=== PATIENT | female | born 1960 | race Caucasian/White ===

== ENCOUNTER 2021-06-05 15:11 | Emergency (ER) | payer BC ==
[2021-06-05] MEDS ORDERED: Sodium Chloride 0.9% 1000 ML 1,000 ML IV STA (15:48)
--- NOTE | 2021-06-05 15:51 | ERPHSYRPT ---
- History of Present Illness Time Seen by Provider: 06/05/21 15:22 Historian: patient Exam Limitations: no limitations Patient Subjective Stated Complaint: pt here for abd pain and constipation since tuesday, has a normal bm on tuesday, she has had miralax,enema, with little relief Triage Nursing Assessment: pt alert, walked in, resp easy, skin w/d/p. abd distended, Physician History: 60 years old female with history of IBS presented in the ER with chief complaint of generalized abdominal pain with distention and constipation for the last 5 days. Patient report she usually have diarrhea dominant IBS but she does not have a normal bowel movement last 5 days despite taking [id number] stool softeners/laxatives. Belly was fairly distended until yesterday and took some Gas-X and had a small bowel movement with some improvement. Currently pain is mild to moderate generalized without any significant aggravating or relieving factors. Reports mild nausea but no vomiting. Patient was at Dr. Lovell's office, was recommended direct admission but patient preferred to come to ER to make sure that she does not have colitis/diverticulitis or obstruction to avoid admission if she can. Timing/Duration: day(s) (5), constant, gradual onset, worse Activities at Onset: rest Quality: cramping Abdominal Pain Onset Location: generalized abdomen Pain Radiation: no radiation Severity of Pain-Max: moderate Severity of Pain-Current: mild Modifying Factors: Improves With: nothing Associated Symptoms: denies symptoms Previous symptoms: no prior history Allergies/Adverse Reactions: codeine Allergy (Unknown, Verified 06/05/21 15:19) Penicillins Allergy (Unknown, Verified 06/05/21 15:19) Sulfa (Sulfonamide Antibiotics) Allergy (Verified 06/05/21 15:29) Hx Influenza Vaccination/Date Given: Yes Hx Pneumococcal Vaccination/Date Given: No Immunizations Up to Date: No Travel Risk - International Travel Have you traveled outside of the country in past 3 weeks: No - Coronavirus Screening Are you exhibiting any of the following symptoms?: No Close contact with a COVID-19 positive Pt in past 14-21 Days: No - Vaccine Status Have you recieved a Covid-19 vaccination: Yes Cash Manager: Cloudy Days - Vaccination Dates Date of 2cond Vaccination (if applicable): december - Review of Systems Constitutional: No Symptoms Eyes: No Symptoms Ears, Nose, & Throat: No Symptoms Respiratory: No Symptoms Cardiac: No Symptoms Abdominal/Gastrointestinal: Abdominal Pain, Nausea, Constipation Genitourinary Symptoms: No Symptoms Musculoskeletal: No Symptoms Skin: No Symptoms Neurological: No Symptoms Psychological: No Symptoms Endocrine: No Symptoms Hematologic/Lymphatic: No Symptoms Immunological/Allergic: No Symptoms - Past Medical History Pertinent Past Medical History: No Neurological History: No Pertinent History ENT History: No Pertinent History Cardiac History: No Pertinent History Respiratory History: No Pertinent History Endocrine Medical History: No Pertinent History Musculoskeletal History: No Pertinent History GI Medical History: Irritable Bowel History: No Pertinent History Psycho-Social History: No Pertinent History Female Reproductive Disorders: No Pertinent History - Past Surgical History Past Surgical History: Yes Neuro Surgical History: No Pertinent History Cardiac: No Pertinent History Respiratory: No Pertinent History Gastrointestinal: Cholecystectomy Genitourinary: No Pertinent History Musculoskeletal: Orthopedic Surgery Female Surgical History: No Pertinent History, Tubal Ligation Other Surgical History: Ankle surgery d/t fx - Social History Smoking Status: Never smoker Exposure to second hand smoke: No Drug Use: none Patient Lives Alone: Yes - Female History Hx Last Menstrual Period: post Hx Now: No - Nursing Vital Signs Nursing Vital Signs: Initial Vital Signs Temperature 98.0 F 06/05/21 15:33 Pulse Rate 83 06/05/21 15:33 Blood Pressure 134/74 06/05/21 15:33 O2 Sat by Pulse Oximetry 96 06/05/21 15:33 Pain Scale Pain Intensity 4 - Physical Exam General Appearance: no apparent distress, alert Eye Exam: eyes nml inspection Ears, Nose, Throat Exam: normal ENT inspection, pharynx normal Neck Exam: normal inspection, supple, full range of motion Respiratory Exam: normal breath sounds, lungs clear Cardiovascular Exam: regular rate/rhythm, normal heart sounds Gastrointestinal/Abdomen Exam: soft, tenderness (Generalized), distention, guarding (Generalized), No normal bowel sounds (Hypoactive), No rebound Back Exam: normal inspection, normal range of motion Extremity Exam: normal inspection, normal range of motion Neurologic Exam: alert, oriented x 3, cooperative Skin Exam: normal color SpO2 Interpretation: normal SpO2: 96 O2 Delivery: Room Air Ordered Tests: Active Orders 24 hr Category Date Time Status IV Insertion STAT Care 06/05/21 15:48 Active NPO (ED) STAT Care 06/05/21 15:48 Active ABDOMEN AND PELVIS W CONTRAST [CT] Stat Exams 06/05/21 15:48 Taken CBC W DIFF Stat Lab 06/05/21 15:48 Completed CMP Stat Lab 06/05/21 15:48 Completed LIPASE Stat Lab 06/05/21 15:48 Completed UA W/RFX UR CULTURE Stat Lab 06/05/21 15:48 Completed Medication Summary Discontinued Medications Generic Name Dose Route Start Last Admin Trade Name Britany PRN Reason Stop Dose Admin Sodium Chloride 1,000 mls @ 999 mls/hr 06/05/21 15:48 06/05/21 17:19 Sodium Chloride 0.9% 1000 Ml IV 06/05/21 16:48 Infused .Q1H1M STA Infusion Sodium Chloride Confirm 06/05/21 16:08 Sodium Chloride 0.9% 1000 Ml Administered 06/05/21 16:09 Dose 1,000 mls @ ud .ROUTE .STK-MED ONE Lab/Rad Data: Laboratory Result Diagrams 06/05/21 15:48 06/05/21 15:48 Laboratory Results 06/05/21 06/05/21 06/05/21 Range/Units 15:48 15:48 15:48 WBC 4.7 (4.0-10.5) K/mm3 RBC 4.62 (4.1-5.4) M/mm3 Hgb 13.2 (12.0-16.0) gm/dl Hct 40.0 (35-47) % MCV 86.6 (78-100) fl MCH 28.6 (26-32) pg MCHC 33.0 (32-36) g/dl RDW 13.4 (11.5-14.0) % Plt Count 252 (150-450) K/mm3 MPV 10.2 (7.5-11.0) fl Gran % 57.6 (36.0-66.0) % Eos # (Auto) 0.01 (0-0.5) Absolute Lymphs (auto) 1.29 (1.0-4.6) Absolute Monos (auto) 0.66 (0.0-1.3) Lymphocytes % 27.4 (24.0-44.0) % Monocytes % 14.0 H (0.0-12.0) % Eosinophils % 0.2 (0.00-5.0) % Basophils % 0.8 (0.0-0.4) % Absolute Granulocytes 2.71 (1.4-6.9) Basophils # 0.04 (0-0.4) Sodium 132 L (137-145) mmol/L Potassium 3.1 L (3.5-5.1) mmol/L Chloride 96 L (98-107) mmol/L Carbon Dioxide 27 (22-30) mmol/L Anion Gap 13.1 (5-15) MEQ/L BUN 16 (7-17) mg/dL Creatinine 0.88 (0.52-1.04) mg/dL Estimated GFR > 60.0 ML/MIN Glucose 112 H (74-106) mg/dL Calcium 9.3 (8.4-10.2) mg/dL Total Bilirubin 0.70 (0.2-1.3) mg/dL AST 39 H (14-36) U/L ALT 31 (0-35) U/L Alkaline Phosphatase 87 (38-126) U/L Serum Total Protein 7.3 (6.3-8.2) g/dL Albumin 4.3 (3.5-5.0) g/dL Lipase 166 (23-300) U/L Urine Color YELLOW (YELLOW) Urine Appearance CLEAR (CLEAR) Urine pH 5.0 (5-6) Ur Specific [place] 1.006 (1.005-1.025) Urine Protein NEGATIVE (Negative) Urine Ketones NEGATIVE (NEGATIVE) Urine Blood NEGATIVE (0-5) Víctor/ul Urine Nitrite NEGATIVE (NEGATIVE) Urine Bilirubin NEGATIVE (NEGATIVE) Urine Urobilinogen NEGATIVE (0-1) mg/dL Ur Leukocyte Esterase SMALL (NEGATIVE) Urine WBC (Auto) 6-10 (0-5) /HPF Urine RBC (Auto) NONE SEEN (0-2) /HPF U Epithel Cells (Auto) RARE (FEW) /HPF Urine Bacteria (Auto) NONE SEEN (NEGATIVE) /HPF Urine Culture Reflexed NO (NO) Urine Glucose NEGATIVE (NEGATIVE) mg/dL - Progress Progress: improved, pain not gone completely, re-examined Progress Note: 06/05/21 18:28 60 years old is evaluated for generalized abdominal pain with constipation and questionable obstruction. She has a normal white count, chemistry profile showed mild hypokalemia and given replacement. I have obtained CT abdomen pelvis with contrast which did not show any obstruction but some inflammation of mesentery without any colitis, does have history of IBS. Patient reports having similar symptoms in the past which got better with prednisone. I have given her a shot of Solu-Medrol in here and will give a short course of steroid to go home. Recommended Tylenol/ibuprofen as needed and outpatient follow-up. Discussed signs symptoms of worsening needing return to ER which he seems understanding. Stable for discharge. Counseled pt/family regarding: lab results, diagnosis, need for follow-up, rad results - Departure Departure Disposition: Home Clinical Impression: Generalized abdominal pain, Hypokalemia Condition: Stable Critical Care Time: No Referrals: [facility] [Primary Care Provider] - Follow Up with PCP/3 days Instructions: Acute Abdomen (Belly Pain), Adult (DC) Additional Instructions: Drink plenty of fluids. Take Tylenol/ibuprofen as needed. Follow-up with your primary care for reevaluation early next week. Return to ER for intractable abdominal pain, vomiting/fever chills etc. Prescriptions: Prednisone 20 mg [Deltasone 20 mg] 60 mg PO DAILY 5 Days #15 tablet
[2021-06-05 15:59] LABS: Absolute Neutrophil Ct (ANC) 2.71 (1.4-6.9); BASOPHIL % 0.8 % (0.0-0.4); Basophil (Absolute #) 0.04 (0-0.4); Eosinophil % 0.2 % (0.00-5.0); Eosinophil (Absolute #) 0.01 (0-0.5); Hemoglobin 13.2 gm/dl (12.0-16.0); Lymphocyte (Absolute #) 1.29 (1.0-4.6); Lymphocytes % 27.4 % (24.0-44.0); Mean Cell Volume 86.6 fl (78-100); Mean Corpuscular Hemoglobin 28.6 pg (26-32); Mean Platelet Volume 10.2 fl (7.5-11.0); Monocyte (Absolute #) 0.66 (0.0-1.3); Neutrophil % 57.6 % (36.0-66.0); Platelet Count 252 K/mm3 (150-450); Red Blood Count 4.62 M/mm3 (4.1-5.4); Red Cell Distribution Width 13.4 % (11.5-14.0); White Blood Count 4.7 K/mm3 (4.0-10.5)
[2021-06-05 16:03] LABS: Appearance CLEAR (CLEAR); Bilirubin NEGATIVE (NEGATIVE); Blood NEGATIVE Ery/ul (0-5); Epithelial Cells RARE /HPF (FEW); Glucose NEGATIVE (NEGATIVE); Ketones NEGATIVE (NEGATIVE); Leukocyte Esterase SMALL (NEGATIVE); Nitrite NEGATIVE (NEGATIVE); Protein,Urine Dip NEGATIVE (Negative); Specific Gravity 1.006 (1.005-1.025); Urobilinogen NEGATIVE mg/dL (0-1)
[2021-06-05 16:04] LABS: Bacteria NONE SEEN /HPF (NEGATIVE); RBC NONE SEEN /HPF (0-2)
[2021-06-05] MEDS ORDERED: Sodium Chloride 0.9% 1000 ML 1,000 ML ONE (16:08)
[2021-06-05 16:09] LABS: ALBUMIN 4.3 g/dL (3.5-5.0); ALKALINE PHOSPHATASE 87 U/L (38-126); ANION GAP 13.1 MEQ/L (5-15); BLOOD UREA NITROGEN 16 mg/dL (7-17); CHLORIDE 96 mmol/L (98-107); Calcium 9.3 mg/dL (8.4-10.2); Carbon Dioxide 27 mmol/L (22-30); Creatinine 1 0.88 mg/dL (0.52-1.04); EST GLOMERULAR FILTRATION RATE > 60.0 ML/MIN; Glucose 112 mg/dL (74-106); LIPASE 166 U/L (23-300); Potassium 3.1 mmol/L (3.5-5.1); SGOT/AST 39 U/L (14-36); SGPT/ALT 31 U/L (0-35); SODIUM 132 mmol/L (137-145); Total Protein 7.3 g/dL (6.3-8.2)
[2021-06-05] MEDS ORDERED: solu-MEDROL 125 MG, Sterile H2O 10 ml 2 ML IV ONE ×2 (18:27)
[2021-06-05] MEDS ORDERED: Klor Con 10 MEQ PO ONE ×2 (18:28→18:40)
[2021-06-05] MEDS ORDERED: Sterile H2O 10 ml IJ ONE (18:40)
[2021-06-05] MEDS ORDERED: solu-MEDROL ONE (18:40)
[2021-06-05 19:07] VITALS: BP 120/58; PULSE 72; O2SAT 98
--- NOTE | 2021-06-05 22:40 | XRAY ---
Indication: Abdomen pain, bloating, and constipation. Multiple contiguous axial images obtained through the abdomen and pelvis using 80 cc of Isovue-370 contrast. Comparison: None. Lung bases demonstrates mild bibasilar dependent atelectasis. No infiltrate or effusion. Heart not enlarged. Small hiatal hernia. Noncontrasted stomach and bowel loops appear nonobstructed. Mild fluid distended small bowel loop midabdomen with mild wall thickening and fluid leveling, focal enteritis versus ileus. Prominent right lower quadrant Meckel's diverticulum. Normal appendix. Previous cholecystectomy. No free fluid/air. Liver demonstrates a few cysts, largest 2.3 cm. Remaining liver, pancreas, spleen, adrenal glands, kidneys, ureters, bladder, and uterus are unremarkable. Minimal aortic calcifications. No AAA or pathological retroperitoneal lymphadenopathy. Osseous structures intact with minimal degenerative changes throughout the spine. Impression: 1. Midabdomen fluid distended mild fluid distended small bowel loops with wall thickening and fluid leveling, enteritis versus ileus. 2. Incidental hepatic cysts, small hiatal hernia, and Meckel's diverticulum. Comment: Preliminary interpretation made by [facility]. No critical discrepancy.
== END 2021-06-05 19:07 | disposition home or self-care (01) ==
LOC: ED 15:11
DX: R10.84 Generalized abdominal pain (principal); E87.6 Hypokalemia
CPT/HCPCS: 36000; 36415; 74177; 80053; 81001; 83690; 85025; 96360; 96374; 99284; J2930; A9270-GY